=== PATIENT | female | born 1995 ===

== ENCOUNTER → 2017-02-04 | Emergency (ER) | payer OTHER ==
--- NOTE | 2017-02-04 16:33 | OBHP ---
Datetime: 02/04/2017 16:25 IP Adm Impression: Term, intrauterine IP Admit Plan: Observation/Evaluation; Discharge home Admit Comment, IP Provider: Patient is a @ 39+ wks with contractions and increased discharge. N O vaginal bleeding, no leaking, +FM, no antepartum issues, no medical problems, no allergies, only ta surinder vitamins, no urinary discomfort VE = FT/Thick/high VIL=[id number] mod david, +accels, no decels, TOCO = ctxning Irregular A/P 1. Patient rule out labor, not in labor, FT on exam and irregular contractions, comfortable. FHR i s 135 cat-I 2. Labor precautions given to patient and patient instructed to follow up at next clinic appt Pelvic Type - PN: Adequate Extremities - PN: Normal Abdomen - PN: Normal Back - PN: Normal Breast - PN: Normal Lungs - PN: Normal Heart - PN: Normal Thyroid - PN: Normal Neurologic - PN: Normal HEENT - PN: Normal General - PN: Normal FHR - Baseline A Provider: 135 Contraction Comments Provider: Irregular Vital Signs Provider: Reviewed; Within Normal Limits IP Chief Complaint: Uterine contractions NICHD Variability Prov Fetus A: Moderate 6-25bpm NICHD Accel Fetus A IP Provider: [id number] FHR Category Provider Fetus A: Category I NICHD Decel Fetus A IP Provider: None Dilatation, Provider: FT Effacement, Provider: THick Station, Provider: -3 Genitourinary Exam: Normal DTRs - PN: Normal
--- NOTE | 2017-02-04 16:35 | OBDCSUM ---
Datetime: 02/04/2017 16:33 Discharged to, Provider: Home Follow up at, Provider: OB Disch Instr Activity: Normal activity Disch Instr Diet: Regular Discharge Instructions, Provider: Routine instructions given Discharge Diagnosis, Provider: False Labor - Undelivered Discharge Time: 02/04/2017 16:33 Follow up in weeks, Provider: this week Disch Referrals: None Contraception discussed, Prov: Yes Discharge Comment, Provider: Return to hospital if increased bleeding, ctxns q 5 mins, decreased FM
== END | disposition home or self-care (01) ==
LOC: H.EROB2 15:27
DX: O47.1 False labor at or after 37 completed weeks of gestation (principal); Z3A.39 39 weeks gestation of pregnancy